=== PATIENT | male | born 1990 | race Caucasian/White ===

== ENCOUNTER 2023-04-06 23:29 | Emergency (ER) | payer MEDICAID, SELFPAY ==
[2023-04-06 23:31] VITALS: BP 119/80; PULSE 88; RESP 20; TEMP 36.5; O2SAT 98
[2023-04-06 23:42] VITALS: O2SAT 98
[2023-04-07] MEDS: Ipratropium/Albuterol Sulfate 3 ML AMPUL.NEB INHALATION (00:23)
[2023-04-07 00:24] VITALS: PULSE 76; RESP 18
--- NOTE | 2023-04-07 00:48 | EX.ED.DYSGE1 ---
HPI History of Present Illness Chief Complaint: Shortness of Breath Informant: patient Narrative Narrative: Patient states for the past 1.5 weeks, since he has been homeless and living at the [facility] locally with his significant other, he has been gradually having more issues with phlegm in his throat. He states this is a chronic issue, he was diagnosed with allergic fungal sinusitis after having received chemotherapy for several different cancers, last time he had chemotherapy was almost 2 years ago, and he states that when he has the phlegm it makes him feel little dyspneic but he does not have any chest symptoms otherwise or fevers/chills or any other new symptoms except for feeling a little shaky and tremulous. Normally he treats this using his maintenance budesonide/formoterol inhaler and prn albuterol inhaler, however for the past 1.5 weeks he has been without both of those and does not have access to them. [facility] Medical History Allergic fungal sinusitis (AFS) Colon cancer Dialysis patient Hypertension Seizures Stomach cancer Home Medications albuterol sulfate 90 mcg/actuation aerosol inhaler (Ventolin HFA) 1 - 2 puff inhalation Q4H PRN PRN Wheezing ##1 04/07/23 [Rx Last Taken Unknown] budesonide-formoterol HFA 160 mcg-4.5 mcg/actuation aerosol inhaler 2 puff inhalation BID #10.2 grams 04/07/23 [Rx Last Taken Unknown] Allergy/AdvReac Type Severity Reaction Status Date / Time iodine Allergy Anaphylaxis Verified 12/01/16 18:24 Surgical History (Updated 04/06/23 @ 23:41 by Naima Riley) S/P colon resection Social History Smoking Status: Current every day smoker tobacco type: cigarettes and cigars ROS ROS ED Constitutional Constitutional ED: Reports malaise; Denies chills or fever(s) Eyes Eyes: Denies change in vision or diplopia ENT ENT ED: Denies rhinorrhea or sore throat Cardiovascular Cardiovascular: Denies chest pain or palpitations Respiratory/Chest Respiratory/Chest: Reports cough, dyspnea and other Details: phlegm Gastrointestinal Gastrointestinal: Denies abdominal pain, diarrhea, nausea or vomiting Genitourinary Genitourinary ED: Denies dysuria or hematuria Musculoskeletal Musculoskeletal: Denies back pain or neck pain Integumentary Denies abscess or rash Neurologic Neurologic: Denies headache(s), paresthesias or weakness Psychiatric Psychiatric: Denies anxiety or suicidal thoughts EXAM Physical Exam Const Vital Signs: 04/06/23 23:31 04/06/23 23:42 04/07/23 00:24 Temperature 97.7 F L Temperature Source Oral Pulse Rate 88 76 Respiratory Rate 20 H 18 Respiratory Effort Normal Respiratory Depth Normal Respiratory Pattern Normal Blood Pressure 119/80 Blood Pressure Mean 93 Pulse Ox 98 Oxygen Delivery Method Room Air Room Air 04/07/23 01:38 Temperature Temperature Source Pulse Rate 104 H Respiratory Rate 16 Respiratory Effort Respiratory Depth Respiratory Pattern Blood Pressure 129/66 H Blood Pressure Mean Pulse Ox 98 Oxygen Delivery Method Positive well nourished and well developed General Appearance ED: well developed and NAD HEENT Reports moist mucous membranes HEENT Narrative: no dysphonia normocephalic and atraumatic Eyes PERRL and EOMs intact bilaterally Neck full ROM, no lymphadenopathy and supple Resp normal respiratory effort and clear to auscultation bilaterally Effort and Inspection: able to speak in complete sentences Cardio regular rate, regular rhythm and no murmurs GI non-tender and non-distended Auscultation: normoactive bowel sounds Palpation: soft Back/Spine no CVA tenderness General Back: other FROM Extremity normal to inspection General Extremety ED: Negative for edema, pulses abnormal or tenderness General Extremity: Negative for edema or pulses abnormal Neuro oriented x3, CN's II-XII intact bilaterally and no sensory deficits noted Sensorium / Orientation: awake and alert Motor Exam: strength 5/5 throughout Skin no rashes or lesions noted and no wounds MDM MDM MDM Narrative Medical decision making narrative: 2 view chest x-ray was obtained and on my interpretation it is negative for any acute pneumonia or pneumothorax or other acute abnormality. Patient was given a duo nebulizer treatment, he states it helped significantly and he feels a lot better and is thankful. He is asking for refills on the his inhalers, I did give him prescriptions for those which should be filled here for him to take with him. He is comfortable with that overall plan of following up as needed, returning if worse. Discharge Plan Triage Chief Complaint: Shortness of Breath ED Provider: Oj Handley Dx/Rx/DC Orders Clinical Impression: Phlegm in throat, Allergic fungal sinusitis (AFS) Instructions: ED Sinusitis (No Antibiotics) Prescriptions: New albuterol sulfate [Ventolin HFA] 90 mcg/actuation HFA aerosol inhaler 1 - 2 puff inhalation Q4H PRN PRN (Reason: Wheezing) Qty: 1 0RF budesonide-formoterol 160-4.5 mcg/actuation HFA aerosol inhaler 2 puff inhalation BID Qty: 10.2 0RF Primary Care Provider: Care Physician,No Primary Referrals: Belinda Dsouza [Non-Staff] - 1 Week if not improving Care Physician,No Primary [Primary Care Provider] - Disposition Disposition: Home, Self Care
--- NOTE | 2023-04-07 01:00 | RAD_ITS ---
EXAM: XR CHEST, 2 VIEWS CLINICAL INDICATION: cough/sob TECHNIQUE: Frontal and lateral views of the chest. COMPARISON: No relevant prior studies available. FINDINGS: LUNGS AND PLEURAL SPACES: The lungs are well-inflated, with mildly hyperlucent appearance of the lung bases, most likely due to thin body habitus. No infiltrate, airway thickening or effusions. No pneumothorax. HEART: Unremarkable. Cardiac silhouette not enlarged. MEDIASTINUM: Central airways and mediastinal contour are unremarkable. BONES/JOINTS: Unremarkable. SOFT TISSUES: Unremarkable. OTHER FINDINGS: 3 views, 2 lateral views are provided. RAD/Chest PA and Lateral IMPRESSION: No infiltrates or effusions. No significant airway thickening. Electronically Signed: Della Penny MD at 2:22 EDT ,
[2023-04-07 01:38] VITALS: BP 129/66; PULSE 104; RESP 16; O2SAT 98
== END 2023-04-07 02:17 | disposition home or self-care (01) ==
PROVIDERS: Emergency Provider Emergency Medicine; Visit Provider Emergency Medicine
DX: J30.89 Other allergic rhinitis (principal); F17.210 Nicotine dependence, cigarettes, uncomplicated; F17.290 Nicotine dependence, other tobacco product, uncomplicated; Z59.01 Sheltered homelessness
CPT/HCPCS: 71046; 94640; 99284

== ENCOUNTER 2023-12-15 12:23 | Emergency (ER) | payer MEDICAID, SELFPAY ==
[2023-12-15 12:24] VITALS: BP 151/113; PULSE 57; RESP 16; TEMP 36.2; O2SAT 98; BMI 23.0
--- NOTE | 2023-12-15 12:46 | EX.ED.UPPERE ---
HPI History of Present Illness Chief Complaint: Upper Extremity Injury Informant: patient Onset/Context/Timing Onset: Days (2-3) Context: Sudden Onset Timing: Continuous Quality of Pain: Aching Location: L wrist Current Severity: Severe Maximum Severity: Severe Worsened by: movement Relieved by: rest Associated Symptoms Associated Symptoms: Negative for Parasthesia or Weakness Narrative Narrative: Patient slipped on the ice 3 days ago, fell to his left upper extremity, did not fall onto outstretched hand, he states his wrist swelled and was painful but nowhere else although the pain radiates up toward the elbow. Swelling went down the last night turned over in bed and he noticed a pop and increased pain and now every time he moves his wrist he states it feels like it is grinding. [id number]. No other pain or injury. [facility] Medical History Allergic fungal sinusitis (AFS) Colon cancer Dialysis patient Hypertension Seizures Stomach cancer Home Medications albuterol sulfate 90 mcg/actuation aerosol inhaler (Ventolin HFA) 1 - 2 puff inhalation Q4H PRN PRN Wheezing ##1 04/07/23 [Rx Last Taken Unknown] budesonide-formoterol HFA 160 mcg-4.5 mcg/actuation aerosol inhaler 2 puff inhalation BID #10.2 grams 04/07/23 [Rx Last Taken Unknown] Allergy/AdvReac Type Severity Reaction Status Date / Time iodine Allergy Anaphylaxis Verified 12/15/23 12:25 Surgical History S/P colon resection Social History Smoking Status: Current every day smoker tobacco type: cigarettes and cigars ROS ROS ED Constitutional Constitutional ED: Denies chills or fever(s) Musculoskeletal Musculoskeletal: Reports extremity pain; Denies neck pain Integumentary Denies Abrasions, rash or wounds Neurologic Neurologic: Denies paresthesias or weakness EXAM Physical Exam Const Vital Signs: 12/15/23 12:24 Temperature 97.1 F L Temperature Source Temporal Pulse Rate 57 L Respiratory Rate 16 Blood Pressure 151/113 H Blood Pressure Mean 125 Pulse Ox 98 Oxygen Delivery Method Room Air Positive well nourished and well developed General Appearance ED: well developed and NAD Neck full ROM and supple Back/Spine normal ROM and normal to inspection Extremity Extremity Narrative: Limited range of motion left wrist. He has some mild tenderness throughout the left distal half of the forearm, the left wrist is mildly swollen, tender mostly at distal radius including the snuffbox. No hand tenderness. No bleeding or lacerations. Full range of motion of the elbow without difficulty although he has pain in the wrist with limited supination pronation. Neuro oriented x3, no focal motor deficits and no sensory deficits noted Sensorium / Orientation: alert Psych mental status grossly normal and thought process normal Skin no wounds Rashes: no rashes MDM MDM MDM Narrative Medical decision making narrative: Three-view x-ray series of the left wrist extended up to see the distal half of the radius/ulna negative on my interpretation for any fracture. Radiology in agreement. Likely patient just has some joint fluid/swelling that he is feeling from a probable sprain but we will place him in a Velcro splint and have him follow-up with Ortho if the pain persists after 1 week. Discharge Plan Triage Chief Complaint: Upper Extremity Injury ED Provider: Oj Handley Dx/Rx/DC Orders Clinical Impression: Left wrist sprain Instructions: ED Wrist Sprain Prescriptions: No Action albuterol sulfate [Ventolin HFA] 90 mcg/actuation HFA aerosol inhaler 1 - 2 puff inhalation Q4H PRN PRN (Reason: Wheezing) Qty: 1 0RF budesonide-formoterol 160-4.5 mcg/actuation HFA aerosol inhaler 2 puff inhalation BID Qty: 10.2 0RF Primary Care Provider: [facility] Belinda Willard Referrals: Heath Kim DO [Med Staff - Active Staff] - 1 Week if not improving Belinda Dsouza [Non-Staff] - Disposition Disposition: Home, Self Care Discharge Date/Time: 12/15/23 14:25
--- NOTE | 2023-12-15 12:53 | RAD_ITS ---
STUDY: X-RAY - LEFT WRIST REASON FOR EXAM: Male, 33 years old. Pain/injury. TECHNIQUE: 3 views of the left wrist were obtained. COMPARISON: None. FINDINGS: Normal visualized distal radius and ulna. Normal radiocarpal articulation. Normal distal radioulnar articulation. Normal carpal bones. Normal carpal articulations. Normal carpometacarpal articulation of the thumb. Normal second through fifth carpometacarpal articulations. Normal visualized metacarpal bones. The soft tissue structures are unremarkable. There is no demonstrated acute fracture. RAD/Wrist min 3 Views IMPRESSION: Normal x-ray examination of the left wrist. Electronically Signed: Chito Hobbs MD at 13:12 EST ,
--- OUTSIDE RECORDS SUMMARY | 2023-12-15 13:09 | XMS RPT_ITS | CCD ---
Author Name Unknown Address [address] [place] [address] Organization [facility] Care Team Providers Care Safety Aide Name Role Phone Unavailable Primary Care Provider Unavailabl e SELF, SELF Referring Unavailable SAMUEL RIZO Attending Unavailable SANNA JUAREZ Attending Unavailable Medications Current Medications Medication Drug Class(es) Dates Sig (Normalized) Sig (Original) amoxicillin 500 mg oral capsule (1 source) Penicillin-class Antibacterial Start: 08-09-2023 End: 08-19-2023 take 1 capsule by mouth every eight hours Amoxicillin 500 MG capsule Take 1 capsule by mouth every 8 hours for 10 days. 30 capsule 0 08/09/2023 08/19/2023 Active cephalexin 500 mg oral capsule (1 source) Cephalosporin Antibacterial Start: 04-03-2022 End: 04-06-2022 take 1 capsule by mouth three times daily cephALEXin (KEFLEX) 500 mg capsule Take 1 capsule by mouth three times daily for 3 days. Start after procedure. 9 capsule 0 04/03/2022 04/06/2022 Active Completed/Discontinued Medications Medication Drug Class(es) Dates Sig (Normalized) Sig (Original) acetaminophen 325 mg / HYDROcodone bitartrate 5 mg oral tablet (2 sources) Opioid Agonist Start: 04-03-2022 HYDROcodone-acetam inophen (NORCO) 5-325 mg per tablet Indications: Encounter for vasectomy assessment Take 1-2 tablets by mouth every 8 hours as needed for pain for up to 20 doses. Take as needed for pain. 20 tablet 0 04/03/2022 Active Problems Problem Classification Problem Date Documented Da te Episodic/Chronic Chronic kidney disease (1 source) Chronic kidney disease stage 3A ; Translations: [Stage 3a chronic kidney disease] 08-26-2023 Chronic Chronic kidney disease (2 sources) Chronic kidney disease; Translations: [Chronic kidney disease, stage 3a] Onset: 08-26-2023 Contraceptive and procreative management (1 source) Patient encounter status; Translations: [Encounter for other general counseling and advice on contraception] Episodic Otitis media and related conditions (2 sources) Perforation of right tympanic membrane; Translations: [Unspecified perforation of tympanic membrane, right ear] Onset: 08-09-2023 08-09-2023 Episodic Results Test Name Value Interpretation Reference Range Facil ity Vital Signs Date Time Vital Sign Value Performing Clinician Facility 08-26-2023 14:27-0400 Body mass index (BMI) [Ratio] 23.75 kg/m2 Samuel Rizo MD Work Phone: [facility] 08-26-2023 14:27-0400 Body weight 83.92 kg Samuel Rizo MD Work Phone: [facility] 08-26-2023 14:27-0400 Diastolic blood pressure 80 mm[Hg] Samuel Rizo MD Work Phone: [facility] 08-26-2023 14:27-0400 Heart rate 75 /min Samuel Rizo MD Work Phone: [facility] 08-26-2023 14:27-0400 SaO2% (BldA) [Mass fraction] 98 % Samuel Rizo MD Work Phone: [facility] 08-26-2023 14:27-0400 Systolic blood pressure 130 mm[Hg] Samuel Rizo MD Work Phone: [facility] 08-09-2023 10:45-0400 Diastolic blood pressure 75 mm[Hg] Sanna Juarez MD Work Phone: [facility] 08-09-2023 10:45-0400 Heart rate 75 /min Sanna Juarez MD Work Phone: [facility] 08-09-2023 10:45-0400 Systolic blood pressure 124 mm[Hg] Sanna Juarez MD Work Phone: [facility] 08-09-2023 10:13-0400 Body height 188 cm Sanna Juarez MD Work Phone: [facility] 08-09-2023 10:12-0400 Body temperature 98.49 [degF] Sanna Juarez MD Work Phone: [facility] 08-09-2023 10:12-0400 Respiratory rate 16 /min Sanna Juarez MD Work Phone: [facility] 08-09-2023 10:12-0400 SaO2% (BldA) [Mass fraction] 100 % Sanna Juarez MD Work Phone: [facility] 04-03-2022 14:07-0400 Body height 193 cm Ede Granda MD Work Phone: [facility] 04-03-2022 14:07-0400 Heart rate 85 /min Ede Granda MD Work Phone: [facility] 04-03-2022 14:07-0400 SaO2% (BldA) [Mass fraction] 99 % Ede Granda MD Work Phone: [facility] Encounters Encounter Date Encounter Type Care Provider Facility Start: 08-26-2023 ambulatory SELF SELF [facility] Start: 08-26-2023 End: 08-26-2023 Office outpatient new 45 minutes Samuel Rizo MD Work Phone: [facility] Plan of Treatment Date Care Activity Detail Author Start: 09-16-2023 End: 09-16-2023 Patient encounter procedure 09/16/2023 3:00 PM EDT Office Visit [facility] [address] [place] [address] Samuel Rizo MD [address] [place] [address] [facility] Start: 08-26-2023 End: 08-26-2024 ONEYDA MULTIPLEX SCRN WITH REFLEX ONEYDA MULTIPLEX SCRN WITH REFLEX Lab Routine Stage 3a chronic kidney disease Expected: 08/26/2023, Expires: 08/26/2024 [facility] Payers Date Payer Category Payer Medicaid [id number] 2021 Medicaid [employer] [employer] [id number] 2021-Present [phone] [address] [place] [address] Medicaid [id number] 2021 Medicaid [id number] 1991 Unknown [id number] 1990 Unknown [id number] Social History Date Type Detail Facility Start: 04-03-2022 End: 08-09-2023 Tobacco smoking status MEIS Smokes tobacco daily [facility] Start: 04-03-2022 Tobacco use and exposure Forme r smokeless tobacco user [facility] Start: 04-03-2022 Alcohol intake Lifetime non-d ren (finding) [facility] Start: 04-03-2022 History SDOH Alcohol Frequency 1 [facility] Start: 1990 Sex Assigned At Not on file [facility] History of tobacco use Cigarette Smoker [facility] Start: 08-09-2023 End: 08-26-2023 Cigarettes smoked current (pack per day) - Reported 1 [facility] Start: 08-09-2023 End: 08-26-2023 Alcohol intake Ex-drinker (finding) [facility] Start: 08-09-2023 End: 08-26-2023 Tobacco use panel [facility] Clinical Notes 04-03-2022 to 08-26-2023 Samuel Rizo MD - 08/26/2023 2:30 PM EDTSamuel Rizo MD - 08/26/2023 2:30 PM EDT Note Date & Type Note Facility 08-26-2023 History and physical note I saw Jose Juan Carballo in renal clinics at [facility] in [place] on 08/26/2023. Assessment/Plan: 32 y/o male with history of kidney stone, lupus, and abdominal masses is here for CKD care. 1) CKD III Will get renal US Will get UA Will get renal panel. 2) Lupus Will get ESR and CRP 3) Kidney stone Will get vitamin D Will get PTH. Reason for Consultation: CKD Consulting Physician: Self History of Present Illness: Jose Juan Carballo is a 32 y.o. male who we have been consulted to see on 08/26/2023. 32 y/o male with history of kidney stone, lupus, and abdominal masses is here for CKD care. He has been in remission for a year. He does not know what meds he is on. No past medical history on file. (Not in a hospital admission) Scheduled Meds: IV Infusions: Not on File History reviewed. No pertinent family history. Social History Tobacco Use Smoking status: Every Day Packs/day: 1 Types: Cigarettes Substance Use Topics Alcohol use: Not Currently Drug use: Yes Types: Marijuana Review of Systems: General ROS: Otherwise remainder of 14-point ROS is negative HEENT: No complaints of headache change in vision, nose or ear No sinus issues Cadiovascular: No chest pain, no diaphoresis, no palpitation Gastrointestinal: No complaints of dysphagia, nausea, vomiting. No change in stool pattern, consistency, or color. No epigastric pain Genitourinary: No complaints of dysuria, nocturia, polyuria, or hematuria. Pulmonary: No cough, no SOB, no wheezing Musculoskeletal: No arthralgias, muscle aches, or pains. Neurological: No weakness, numbness, or incoordination Integumentary: No rashes, itching. No hair or nail changes Psychiatric: No anxiety, depression, or sleep disturbance Hematologic / lymphatic: No easy bruising or bleeding. No enlarged lymph nodes. Allergic / immunologic: No hay fever/seasonal nasal congestion. No food/medication reactions Physical Examination: Vital Signs @VSRANGES@ No intake/output data recorded. @IOTHISSHIFT@ BP 130/80 Pulse 75 Wt 83.9 kg (185 lb) SpO2 98% BMI 23.75 kg/m Smoking Status Every Day General: Alert, oriented and cooperative. NAD Skin: Normal in appearance, texture, and temperature HEENT: Scalp normal. Pupils equally round,reactive to light and accommodation, sclera and conjunctiva normal. Nasal mucosa normal. Oral pharynx is normal without erythema or exudate. Tongue and gums are normal. Neck: Easily moveable without resistance, no abnormal adenopathy in the cervical or supraclavicular areas. Trachea is midline and thyroid gland is normal without masses. Carotid artery upstroke is normal bilaterally without bruits. CV: RRR, nl S1 and S2, no m/g/r Lungs: Lungs are clear to auscultation and percussion bilaterally No wheezing, no crackle. Normal effort. Abdomen: The abdomen is symmetrical without distention; bowel sounds are normal in quality and intensity in all areas. No masses or splenomegaly are noted; noo hepatomegaly Extremities: No cyanosis, clubbing, or edema are noted. Peripheral pulses in the femoral, popliteal, anterior tibial, dorsalis pedis,brachial, and radial areas are normal. Nodes: No palpable nodes in the cervical, supraclavicular, axillary or inguinal areas. Neurological: Cranial nerves II-XII are normal. Motor and sensory examination of the upper and lower extremities is normal. Gait and cerebellar function are also normal. Reflexes are normal and symmetrical bilaterally in both extremities. Relevant Data: No results found for: SODIUM , POTASSIUM , CHLORIDE , CO2 , BUN , CREATSERUM , GLUCOSE No results found for: CALCIUM , PHOSPHORUS , PHOSPHORUSTI No results found for: WBC , WBCCOUNT , WBCFETAL , HGB , HCT , PLATELET , MCV No results found for: SPGRVTYUR , SPECGRAVUR , GLUCOSEURINE , BILIRUBINURI , KETONESURINE , BLOODURINE , PHURINE , NITRITEURINE , NITRITESURIN , LEUKOCESTUR , WBCURINE , RBCURINE , BACTERIAURIN No results found for: CREATSERUM T [facility] 08-26-2023 History and physical note I saw Jose Juan Carballo in renal clinics at [facility] in [place] on 08/26/2023. Assessment/Plan: 32 y/o male with history of kidney stone, lupus, and abdominal masses is here for CKD care. 1) CKD III Will get renal US Will get UA Will get renal panel. 2) Lupus Will get ESR and CRP 3) Kidney stone Will get vitamin D Will get PTH. Reason for Consultation: CKD Consulting Physician: Self History of Present Illness: Jose Juan Carballo is a 32 y.o. male who we have been consulted to see on 08/26/2023. 32 y/o male with history of kidney stone, lupus, and abdominal masses is here for CKD care. He has been in remission for a year. He does not know what meds he is on. No past medical history on file. (Not in a hospital admission) Scheduled Meds: IV Infusions: Not on File History reviewed. No pertinent family history. Social History Tobacco Use Smoking status: Every Day Packs/day: 1 Types: Cigarettes Substance Use Topics Alcohol use: Not Currently Drug use: Yes Types: Marijuana Review of Systems: General ROS: Otherwise remainder of 14-point ROS is negative HEENT: No complaints of headache change in vision, nose or ear No sinus issues Cadiovascular: No chest pain, no diaphoresis, no palpitation Gastrointestinal: No complaints of dysphagia, nausea, vomiting. No change in stool pattern, consistency, or color. No epigastric pain Genitourinary: No complaints of dysuria, nocturia, polyuria, or hematuria. Pulmonary: No cough, no SOB, no wheezing Musculoskeletal: No arthralgias, muscle aches, or pains. Neurological: No weakness, numbness, or incoordination Integumentary: No rashes, itching. No hair or nail changes Psychiatric: No anxiety, depression, or sleep disturbance Hematologic / lymphatic: No easy bruising or bleeding. No enlarged lymph nodes. Allergic / immunologic: No hay fever/seasonal nasal congestion. No food/medication reactions Physical Examination: Vital Signs @VSRANGES@ No intake/output data recorded. @IOTHISSHIFT@ BP 130/80 Pulse 75 Wt 83.9 kg (185 lb) SpO2 98% BMI 23.75 kg/m Smoking Status Every Day General: Alert, oriented and cooperative. NAD Skin: Normal in appearance, texture, and temperature HEENT: Scalp normal. Pupils equally round,reactive to light and accommodation, sclera and conjunctiva normal. Nasal mucosa normal. Oral pharynx is normal without erythema or exudate. Tongue and gums are normal. Neck: Easily moveable without resistance, no abnormal adenopathy in the cervical or supraclavicular areas. Trachea is midline and thyroid gland is normal without masses. Carotid artery upstroke is normal bilaterally without bruits. CV: RRR, nl S1 and S2, no m/g/r Lungs: Lungs are clear to auscultation and percussion bilaterally No wheezing, no crackle. Normal effort. Abdomen: The abdomen is symmetrical without distention; bowel sounds are normal in quality and intensity in all areas. No masses or splenomegaly are noted; noo hepatomegaly Extremities: No cyanosis, clubbing, or edema are noted. Peripheral pulses in the femoral, popliteal, anterior tibial, dorsalis pedis,brachial, and radial areas are normal. Nodes: No palpable nodes in the cervical, supraclavicular, axillary or inguinal areas. Neurological: Cranial nerves II-XII are normal. Motor and sensory examination of the upper and lower extremities is normal. Gait and cerebellar function are also normal. Reflexes are normal and symmetrical bilaterally in both extremities. Relevant Data: No results found for: SODIUM , POTASSIUM , CHLORIDE , CO2 , BUN , CREATSERUM , GLUCOSE No results found for: CALCIUM , PHOSPHORUS , PHOSPHORUSTI No results found for: WBC , WBCCOUNT , WBCFETAL , HGB , HCT , PLATELET , MCV No results found for: SPGRVTYUR , SPECGRAVUR , GLUCOSEURINE , BILIRUBINURI , KETONESURINE , BLOODURINE , PHURINE , NITRITEURINE , NITRITESURIN , LEUKOCESTUR , WBCURINE , RBCURINE , BACTERIAURIN No results found for: CREATSERUM documented in this encounter [facility] documented in this encounter [facility]09-16-2023 Emergency department Note* Anum Huber RN - 08/09/2023 10:48 AM EDT At 1057 08-09-23, called and spoke to patient who left behind a cane and purse, said patient returned and collected said items. [facility]09-16-2023 Emergency department Note* Anum Huber RN - 08/09/2023 10:48 AM EDT At 1057 08-09-23, called and spoke to patient who left behind a cane and purse, said patient returned and collected said items. * Jeny Baires RN - 08/09/2023 10:46 AM EDT Ambulatory out of ed with dc papers in hand. Dc instructions along with e script provided and reviewed, verbalizes understanding of dc instructions. Followup care also provided. Denies any questions concerns regarding dc instructions * Sanna Juarez MD - 08/09/2023 10:35 AM EDT EMERGENCY DEPARTMENT REPORT [facility] DATE: 08/09/23 PCP: No primary care provider on file. CHIEF COMPLAINT: Chief Complaint Patient presents with Hearing Problem Pt lost hearing in rt ear yesterday. Pt states it feels like it is plugged. Pain yesterday but noneat this time. He states he feels/hears a swishing sound inside. HPI: Jose Juan Carballo is a 32 y.o. male who presents with Diminished hearing in his right ear for one day.He says yesterday when he was taking shower he noted after the shower that he could not hear out ofhis right ear very well. This morning he noticed a little pink tinged fluid on his pillow that seemed to have come from his ear. He has some mild pain in the ear. He denies fever. No nausea or vomitin g. No other specific complaints. He says the ear feels like it is plugged REVIEW OF SYSTEMS: As documented in HPI. A thorough 12 point review of systems was evaluated including Constitutional and general appearance, Head, Face, Ears, Eyes, Nose, Throat, Cardiovascular, Pulmonary, GI, , Skin, and Psychiatric andwas found to be negative without symptoms or signs consistent with acute pathology with the exception of that specifically documented in the HPI section of this documentation. Remaining systems reviewed and negative other than the history of present illness. PAST MEDICAL HISTORY: No past medical history on file. SURGICAL HISTORY: No past surgical history on file. CURRENT MEDICATIONS: Patient's Medications New Prescriptions AMOXICILLIN 500 MG CAPSULE Take 1 capsule by mouth every 8 hours for 10 days. Previous Medications No medications on file Modified Medications No medications on file Discontinued Medications No medications on file ALLERGIES: Not on File FAMILY HISTORY: History reviewed. No pertinent family history. SOCIAL HISTORY: Social History Socioeconomic History Marital status: Spouse name: Not on file Number of children: Not on file Years of education: Not on file Highest education level: Not on file Occupational History Not on file Tobacco Use Smoking status: Every Day Packs/day: 1 Types: Cigarettes Smokeless tobacco: Not on file Substance and Sexual Activity Alcohol use: Not Currently Drug use: Yes Types: Marijuana Sexual activity: Not on file Other Topics Concern Not on file Social History Narrative Not on file Social Determinants of Health Financial Resource Strain: Not on file Food Insecurity: Not on file Transportation Needs: Not on file Physical Activity: Not on file Stress: Not on file Social Connections: Not on file Intimate Partner Violence: Not on file Housing Stability: Not on file PHYSICAL EXAM: Constitutional: Oriented and well-developed, well-nourished, and in no distress. Non-toxic appearance. HEENT: Normocephalic and atraumatic. Right tympanic membrane has some fluid present behind the drumand has a small hole the 8 o'clock position. Some fluid in the ear canal. There is not a great dealof erythema. See any masses or significant swelling. Eyes: Extra ocular muscles intact.. Pupils are equal and round. No discharge. No scleral icterus. Neck: Neck is supple and nontender. No JVD, thyromegaly or cervical adenopathy. Cardiovascular: Regular rate and rhythm, normal heart sounds and intact distal pulses. No murmur heard. Pulmonary/Chest: Effort normal. Lungs are clear without wheezes, rales or rhonchi. Abdomen: Soft and non-distended. Musculoskeletal: Normal range of motion of major joints. No edema, tenderness or deformity. Neurological: Alert and oriented. No focal weakness, tremor, or facial asymmetry. Normal speech. Normal muscle tone. Skin: Skin is warm and dry. No rash noted. No cyanosis or erythema. Psychiatric: Mood, memory, and judgment normal. Exhibits ordered thought content. Affect appears normal. VITAL SIGNS DURING ED VISIT: Patient Vitals for the past 24 hrs: BP Temp Temp src Pulse Resp SpO2 Height 08/09/23 1013 -- -- -- -- -- -- 1.88 m (6' 2 ) 08/09/23 1012 122/75 98.5 F (36.9 C) Oral 72 16 100 % -- ED COURSE & MEDICAL DECISION MAKIN-year-old with a perforation of his right eardrum. ORDERS/RESULTS: Orders Placed This Encounter AMB REFERRAL TO FAMILY PRACTICE Amoxicillin 500 MG capsule No results found for this or any previous visit. IMAGING: No orders to display Moderate Sedation Procedure: No CLINICAL IMPRESSION: 1. Perforation of right tympanic membrane Acute DISPOSITION: Discharge No follow-ups on file. New Prescriptions AMOXICILLIN 500 MG CAPSULE Take 1 capsule by mouth every 8 hours for 10 days. Discontinued Medications No medications on file An after visit summary was printed and given to the patient with the above information. Portions of this chart were created using [employer] electronic dictation. Please excuse any typographical or grammatical errors contained herein. Sanna Juarez MD 08/09/23 1039 documented in this [facility]09-16-2023 Emergency department Note* Jeny Baires RN - 08/09/2023 10:46 AM EDT Ambulatory out of ed with dc papers in hand. Dc instructions along with e script provided and reviewed, verbalizes understanding of dc instructions. Followup care also provided. Denies any questions concerns regarding dc instructions [facility]09-16-2023 Hospital Discharge instructions* Discharge Instructions* Sanna Juarez MD - 08/09/2023 10:38 AM EDT Take amoxicillin as prescribed. Have the ear rechecked I your primary doctor or the referral physician in 2 weeks. Nothing in the ear. documented in this [facility]09-16-2023 Physician Emergency department Note* Sanna Juarez MD - 08/09/2023 10:35 AM EDT EMERGENCY DEPARTMENT REPORT [facility] DATE: 08/09/23 PCP: No primary care provider on file. CHIEF COMPLAINT: Chief Complaint Patient presents with Hearing Problem Pt lost hearing in rt ear yesterday. Pt states it feels like it is plugged. Pain yesterday but noneat this time. He states he feels/hears a swishing sound inside. HPI: Jose Juan Carballo is a 32 y.o. male who presents with Diminished hearing in his right ear for one day.He says yesterday when he was taking shower he noted after the shower that he could not hear out ofhis right ear very well. This morning he noticed a little pink tinged fluid on his pillow that seemed to have come from his ear. He has some mild pain in the ear. He denies fever. No nausea or vomitin g. No other specific complaints. He says the ear feels like it is plugged REVIEW OF SYSTEMS: As documented in HPI. A thorough 12 point review of systems was evaluated including Constitutional and general appearance, Head, Face, Ears, Eyes, Nose, Throat, Cardiovascular, Pulmonary, GI, , Skin, and Psychiatric andwas found to be negative without symptoms or signs consistent with acute pathology with the exception of that specifically documented in the HPI section of this documentation. Remaining systems reviewed and negative other than the history of present illness. PAST MEDICAL HISTORY: No past medical history on file. SURGICAL HISTORY: No past surgical history on file. CURRENT MEDICATIONS: Patient's Medications New Prescriptions AMOXICILLIN 500 MG CAPSULE Take 1 capsule by mouth every 8 hours for 10 days. Previous Medications No medications on file Modified Medications No medications on file Discontinued Medications No medications on file ALLERGIES: Not on File FAMILY HISTORY: History reviewed. No pertinent family history. SOCIAL HISTORY: Social History Socioeconomic History Marital status: Spouse name: Not on file Number of children: Not on file Years of education: Not on file Highest education level: Not on file Occupational History Not on file Tobacco Use Smoking status: Every Day Packs/day: 1 Types: Cigarettes Smokeless tobacco: Not on file Substance and Sexual Activity Alcohol use: Not Currently Drug use: Yes Types: Marijuana Sexual activity: Not on file Other Topics Concern Not on file Social History Narrative Not on file Social Determinants of Health Financial Resource Strain: Not on file Food Insecurity: Not on file Transportation Needs: Not on file Physical Activity: Not on file Stress: Not on file Social Connections: Not on file Intimate Partner Violence: Not on file Housing Stability: Not on file PHYSICAL EXAM: Constitutional: Oriented and well-developed, well-nourished, and in no distress. Non-toxic appearance. HEENT: Normocephalic and atraumatic. Right tympanic membrane has some fluid present behind the drumand has a small hole the 8 o'clock position. Some fluid in the ear canal. There is not a great dealof erythema. See any masses or significant swelling. Eyes: Extra ocular muscles intact.. Pupils are equal and round. No discharge. No scleral icterus. Neck: Neck is supple and nontender. No JVD, thyromegaly or cervical adenopathy. Cardiovascular: Regular rate and rhythm, normal heart sounds and intact distal pulses. No murmur heard. Pulmonary/Chest: Effort normal. Lungs are clear without wheezes, rales or rhonchi. Abdomen: Soft and non-distended. Musculoskeletal: Normal range of motion of major joints. No edema, tenderness or deformity. Neurological: Alert and oriented. No focal weakness, tremor, or facial asymmetry. Normal speech. Normal muscle tone. Skin: Skin is warm and dry. No rash noted. No cyanosis or erythema. Psychiatric: Mood, memory, and judgment normal. Exhibits ordered thought content. Affect appears normal. VITAL SIGNS DURING ED VISIT: Patient Vitals for the past 24 hrs: BP Temp Temp src Pulse Resp SpO2 Height 08/09/23 1013 -- -- -- -- -- -- 1.88 m (6' 2 ) 08/09/23 1012 122/75 98.5 F (36.9 C) Oral 72 16 100 % -- ED COURSE & MEDICAL DECISION MAKIN-year-old with a perforation of his right eardrum. ORDERS/RESULTS: Orders Placed This Encounter AMB REFERRAL TO FAMILY PRACTICE Amoxicillin 500 MG capsule No results found for this or any previous visit. IMAGING: No orders to display Moderate Sedation Procedure: No CLINICAL IMPRESSION: 1. Perforation of right tympanic membrane Acute DISPOSITION: Discharge No follow-ups on file. New Prescriptions AMOXICILLIN 500 MG CAPSULE Take 1 capsule by mouth every 8 hours for 10 days. Discontinued Medications No medications on file An after visit summary was printed and given to the patient with the above information. Portions of this chart were created using [employer] electronic dictation. Please excuse any typographical or grammatical errors contained herein. Sanna Juarez MD 08/09/23 1039 [facility]08-17-2022 Miscellaneous Notes* Telephone Encounter - Vandana Mark COORD - 07/10/2022 4:09 PM EDT Patient has been contacted via: Phone To reschedule appointment with Provider: gigi Date of appointment: 07/10/22 Reason: No Show Attempt: First Attempt Patient call back number given: [phone] Any additional info: lm for pt to call back and reschedule documented in this encounter[facility]22 NoteHNO ID: [id number] Author: Ede Granda MD Service: ? Author Type: Physician Type: Progress Notes Filed: 04/03/2022 2:31 PM Note Text: Jose Juan Carballo Referred by: SELF 04/03/2022 CC: Desires permanent sterilization HPI: 31 year old male states he desire permanent surgical sterilization. Reports [address] and expressly states he does not desire to father children in the future. Genitourinary history: Hx undescended testis: none Hx stone disease: 10 years ago, passed on own Hx UTI/prostatitis/epididimitis/STI: none ROS: Sexual frequency/libido: intact, no ED Urinary sx: none Hematuria: none History reviewed. No pertinent past medical history. PAST SURGICAL HISTORY Procedure Laterality Date - BACK SURGERY HX N/A - KNEE SURGERY HX Right No current outpatient medications on file. No current facility-administered medications for this visit. Allergies: Patient has no known allergies. Family Hx: Denies family history of genitourinary malignancy Social History Tobacco Use - Smoking status: Current Every Day Smoker - Smokeless tobacco: Former User Substance Use Topics - Alcohol use: Never - Drug use: Never Occupation/exposures: unemployed Review of Systems: Constitutional: No weakness, fever/chills, unexplained weight change Psychiatric: Stable mood Skin: No rashes or lesions HEENT: No blurred vision or double vision. No severe or worsening headaches.Neck: No masses or pain Chest: No shortness of breath or cough. No history of recurrent pneumonia, bronchitis, or sinustitis. CVS: No chest pains or palpatations. No history of cardiovascular disease. GI: No nausea, vomiting or abdominal pain Neurologic: No weakness or sensory changes : see above Musculoskeletal: Stable All other systems reviewed and noncontributory PE: vitals: see above General: Well masculinized, well nourished male Psych: euthymic, NAD Neuro: AANDOx3. Inguinal: No lesions, adenopathy, or hernias Phallus: normal, circumcised, no lesions Meatus: orthotopic, patent, no discharge Scrotum: no lesions, normal rugae Testes: Descended, nontender, and no masses bilaterally Epididymides: Normal Vas deferens: palpable bilaterally Assessment: 31 year old male desires vasectomy. The patient attests that he understood the No-Scalpel Vasectomy pamphlet. He was instructed to stop all NSAIDs, aspirin and other blood thinners 5 days prior to the vasectomy. He was instructed to shave entire front of scrotum to the base of the penis the morning of the vasectomy. Postprocedure care, expectations, and limitations were discussed. He voiced understanding of these instructions and stated his questions were answered. Plan: 1)Proceed to vasectomy I personally counseled this patient about the following and he voiced understanding: a) Vasectomy is a permanent and irreversible form of sterilization b) 1:1,000 rate of recanalization which can results in the return of sperm into the ejaculate after vasectomy c) Patient must use alternative form of control until he is notified that his postprocedure semen analysis contained no sperm. Ede Granda MD Medical Decision Making: Problems: Moderate: New problem with uncertain prognosis Data: Unique test(s) ordered: 1 Risk: Moderate: Drug management Medical Decision Making Level: 4 - [facility] 04-03-2022 Instructions* Patient Instructions* Ede Granda MD - 04/03/2022 2:27 PM EDT Today we discussed your desire for sterilization. Get your prescriptions filled within 2 weeks. Shave your scrotum. Buy an athletic supporter as you'll want to wear it for around 2 weeks. Naima will get you scheduled and I'll see you soon! documented in this encounterAv[facility] System05-11-2022 History of Present illness Narrative* Ede Granda MD - 04/03/2022 2:21 PM EDT Jose Juan Carballo Referred by: SELF 04/03/2022 CC: Desires permanent sterilization HPI: 31 year old male states he desire permanent surgical sterilization. Reports fathering [address] children and expressly states he does not desire to father children in the future. Genitourinary history: Hx undescended testis: none Hx stone disease: 10 years ago, passed on own Hx UTI/prostatitis/epididimitis/STI: none ROS: Sexual frequency/libido: intact, no ED Urinary sx: none Hematuria: none History reviewed. No pertinent past medical history. PAST SURGICAL HISTORY Procedure Laterality Date BACK SURGERY HX N/A KNEE SURGERY HX Right No current outpatient medications on file. No current facility-administered medications for this visit. Allergies: Patient has no known allergies. Family Hx: Denies family history of genitourinary malignancy Social History Tobacco Use Smoking status: Current Every Day Smoker Smokeless tobacco: Former User Substance Use Topics Alcohol use: Never Drug use: Never Occupation/exposures: unemployed Review of Systems: Constitutional: No weakness, fever/chills, unexplained weight change Psychiatric: Stable mood Skin: No rashes or lesions HEENT: No blurred vision or double vision. No severe or worsening headaches.Neck: No masses or pain Chest: No shortness of breath or cough. No history of recurrent pneumonia, bronchitis, or sinustitis. CVS: No chest pains or palpatations. No history of cardiovascular disease. GI: No nausea, vomiting or abdominal pain Neurologic: No weakness or sensory changes : see above Musculoskeletal: Stable All other systems reviewed and noncontributory PE: vitals: see above General: Well masculinized, well nourished male Psych: euthymic, NAD Neuro: A&Ox3. Inguinal: No lesions, adenopathy, or hernias Phallus: normal, circumcised, no lesions Meatus: orthotopic, patent, no discharge Scrotum: no lesions, normal rugae Testes: Descended, nontender, and no masses bilaterally Epididymides: Normal Vas deferens: palpable bilaterally Assessment: 31 year old male desires vasectomy. The patient attests that he understood the No-Scalpel Vasectomy pamphlet. He was instructed to stopall NSAIDs, aspirin and other blood thinners 5 days prior to the vasectomy. He was instructed to shave entire front of scrotum to the base of the penis the morning of the vasectomy. Postprocedure care, expectations, and limitations were discussed. He voiced understanding of these instructions and st ated his questions were answered. Plan: 1)Proceed to vasectomy I personally counseled this patient about the following and he voiced understanding: a) Vasectomy is a permanent and irreversible form of sterilization b) 1:1,000 rate of recanalization which can results in the return of sperm into the ejaculate aftervasectomy c) Patient must use alternative form of control until he is notified that his postprocedure semen analysis contained no sperm. Ede Granda MD Medical Decision Making: Problems: Moderate: New problem with uncertain prognosis Data: Unique test(s) ordered: 1 Risk: Moderate: Drug management Medical Decision Making Level: 4 - Moderate documented in [facility] [place] [facility]* Diagnosis Encounter for vasectomy assessment- Primary [facility] [place] [facility]* Diagnosis Perforation of right tympanic membrane- Primary Perforation of tympanic membrane, unspecified [facility] Consultation (Urgent) - New Request Specialty Diagnoses / Procedures Referred By Chase pretty Referred To Contact Family Medicine Diagnoses Perforation of right tympanic membrane Sanna Juarez MD [address] [place] [address] Referral ID Status Reason Start Date Expiration Date V isits Requested Visits Authorized [id number] New Request 08/09/2023 09/02/2024 1 [facility] for [facility] Specialty Diagnoses / Procedures Referred By Chase pretty Referred To Contact Diagnoses Encounter for vasectomy assessment Ede Granda MD [address] [place] [address] Referral ID Status Reason Start Date Expiration Date Visits Re quested Visits Authorized [id number] Closed 1 1 Specialty Diagnoses / Procedures Referred By Chase pretty Referred To Contact Diagnoses Stage 3a chronic kidney disease Procedures US RENAL RETROPERITONEAL Samuel Rizo MD [address] [place] [address] Referral ID Status Reason Start Date Expiration Date V isits Requested Visits Authorized [id number] New Request 08/26/2023 09/19/2024 1 1 Summary Purpose Family History No Family History Records FoundNo Family History Records Found Advance Directives No Advanced Directives Records FoundNo Advanced Directives Records Found Additional Source Comments Source Comments (unrecognize d section and content) In the event this informatio n is protected by the Federal Confidentiality of Alcohol and Drug Abuse Patient Records regulations: The Federal rules restrict any use of the information to criminally investigate or prosecute any alcohol or drug abuse patient.[facility] SystemIn the event this information is protected by the Federal Confidentiality of Alcohol and Drug Abuse Patient Records regulations: The Federal rules restrict any use of the information to criminally investigate or prosecute any alcohol or drug abuse patient.[facility] Reason for Visit (unrecogniz ed section and content) Reason Comments No Show Reason Comments Hearing Problem Pt lost hearing in r t ear yesterday. Pt states it feels like it is plugged. Pain yesterday but none at this time. He states he feels/hears a swishing sound inside. Reason Comments New Patient Pt has lupus wants t o be established (unrecognized sect ion and content) No Status Records FoundNo Status Records Found INFORMATION SOURCE (unrecogn ized section and content) DATE CREATED AUTHOR AUTHOR'S ORGANIZ ATION 08/27/2023 Arlene teran FOR RECORDS PERTAINING TO PATIENTS WHO ARE OR HAVE BEEN ENROLLED IN A CHEMICAL DEPENDENCY/SUBSTANCEABUSE PROGRAM, SOME INFORMATION MAY BE OMITTED. This clinical summary was aggregated from multiple sources. Caution should be exercised in using it in the provision of clinical care. This summary normalizes information from multiple sources, and as a consequence, information in this document may materially change the coding, format and clinical context of patient data. In addition, data may be omitted in some cases. CLINICAL DECISIONS SHOULD BE BASED ON THE PRIMARY CLINICAL RECORDS. [facility] [employer] provides no warranty or guarantee of the accuracy or completeness of information in this document.
[2023-12-15 14:24] VITALS: PULSE 78; RESP 16; O2SAT 95
== END 2023-12-15 14:25 | disposition home or self-care (01) ==
PROVIDERS: Emergency Provider Emergency Medicine; Visit Provider Emergency Medicine
DX: S63.92XA Sprain of unspecified part of left wrist and hand, initial encounter (principal); F17.210 Nicotine dependence, cigarettes, uncomplicated; W00.9XXA Unspecified fall due to ice and snow, initial encounter
CPT/HCPCS: 73110; 99283

== ENCOUNTER 2024-05-18 10:39 | Emergency (ER) | payer MEDICAID, SELFPAY ==
[2024-05-18 10:39] VITALS: BP 129/97; PULSE 89; RESP 20; TEMP 35.7; O2SAT 99; BMI 21.9
--- NOTE | 2024-05-18 11:26 | EX.ED.VIS.UR ---
HPI HPI - URI History of Present Illness Chief Complaint: Cough Informant: patient Onset/Context/Timing Onset: Days (5) Context: Gradual Onset Timing: Continuous Quality: Dry cough Location: Chest Worsened by: - (Nothing) Relieved by: - (Nothing) Associated Symptoms Associated Symptoms: Positive for Headache, Shortness of Breath, Chest Pain and Nonproductive cough; Negative for Nasal Congestion, Sinus Pressure, Myalgias, Nausea, Vomiting, Diarrhea, Hemoptysis or Productive Cough Narrative Narrative: Patient presents with cough that has been constant for the past 5 days. Patient states he is unable to produce any sputum. Patient states he has been constant. Patient states it is gradually getting worse. Patient admits to some pain in his chest with coughing. Patient states he feels like sometimes he cannot catch his breath. Patient also admits to generalized headache. Patient denies any fevers or chills. Patient states nothing makes his cough better and nothing makes it worse. ROS ROS ED Constitutional Constitutional ED: Denies chills or fever(s) Eyes Eyes: Denies blurry vision or change in vision ENT ENT ED: Denies rhinorrhea or sore throat Cardiovascular Cardiovascular: Reports chest pain; Denies palpitations Respiratory/Chest Respiratory/Chest: Reports cough and dyspnea Gastrointestinal Gastrointestinal: Denies nausea or vomiting Genitourinary Genitourinary ED: Denies dysuria or hematuria Musculoskeletal Musculoskeletal: Reports neck pain; Denies back pain Integumentary Denies abscess or rash Neurologic Neurologic: Reports headache(s); Denies weakness Allergic/Immunologic Allergic/Immunologic ED: Denies mouth swelling or urticaria [facility] Medical History Dialysis patient Allergic fungal sinusitis (AFS) Hypertension Seizures Colon cancer Stomach cancer Home Medications ?Medication ?Instructions ?Recorded ?Last Taken ?Type albuterol sulfate 90 mcg/actuation 1 - 2 puff inhalation Q4H PRN PRN 04/07/23 Unknown Rx aerosol inhaler (Ventolin HFA) Wheezing ##1 budesonide-formoterol HFA 160 2 puff inhalation BID #10.2 grams 04/07/23 Unknown Rx mcg-4.5 mcg/actuation aerosol inhaler lamotrigine 100 mg tablet 100 mg PO BID 05/18/24 Unknown History lamotrigine 50 mg disintegrating 50 mg PO BID 05/18/24 Unknown History tablet propranolol 10 mg tablet 10 mg PO BID PRN PRN anxiety 05/18/24 Unknown History Allergy/AdvReac Type Severity Reaction Status Date / Time iodine Allergy Anaphylaxis Verified 05/18/24 10:40 Surgical History S/P colon resection Social History Smoking Status: Current every day smoker tobacco type: cigarettes and cigars EXAM Physical Exam Const Vital Signs: 05/18/24 10:39 05/18/24 10:56 05/18/24 12:27 Temperature 96.3 F L Temperature Source Temporal Pulse Rate 89 70 Respiratory Rate 20 H 18 Respiratory Effort Normal Non-Labored Respiratory Depth Normal Respiratory Pattern Tachypnea Normal Blood Pressure 129/97 H Blood Pressure Mean 107 Pulse Ox 99 Oxygen Delivery Method Room Air Room Air 05/18/24 12:27 Temperature Temperature Source Pulse Rate Respiratory Rate Respiratory Effort Respiratory Depth Respiratory Pattern Blood Pressure Blood Pressure Mean Pulse Ox 99 Oxygen Delivery Method Room Air Positive well nourished and well developed General Appearance ED: well developed and NAD HEENT Reports moist mucous membranes normocephalic and atraumatic Neck supple and no JVD Resp normal respiratory effort and clear to auscultation bilaterally Cardio Rate: regular rate Rhythm: regular rhythm GI non-tender and non-distended Extremity normal to inspection and full ROM Neuro oriented x3, CN's II-XII intact bilaterally and no sensory deficits noted Sensorium / Orientation: alert Motor Exam: strength 5/5 throughout MDM MDM MDM Narrative Medical decision making narrative: Differential diagnosis includes pneumonia, bronchitis, viral upper respiratory infection, and seasonal allergies. Chest x-ray will be obtained to assess for pneumonia and pneumothorax. CBC will be obtained to assess for leukocytosis and anemia. Basic metabolic profile will be obtained to assess for electrolyte abnormality and renal function. COVID-19, influenza, and RSV PCR will be obtained to assess for viral illness. Treatment and Re-Evaluation Narrative: Smoking cessation was discussed. Patient was given a DuoNeb aerosol. Patient refused viral swabs. Patient did not want to be evaluated any further emergency department. Patient left prior to completing treatment. Discharge Plan Triage Chief Complaint: Cough ED Provider: Dago Kim Dx/Rx/DC Orders Clinical Impression: Cough Prescriptions: No Action albuterol sulfate [Ventolin HFA] 90 mcg/actuation HFA aerosol inhaler 1 - 2 puff inhalation Q4H PRN PRN (Reason: Wheezing) Qty: 1 0RF budesonide-formoterol 160-4.5 mcg/actuation HFA aerosol inhaler 2 puff inhalation BID Qty: 10.2 0RF propranolol 10 mg tablet 10 mg PO BID PRN PRN (Reason: anxiety) lamotrigine 100 mg tablet 100 mg PO BID lamotrigine 50 mg tablet,disintegrating 50 mg PO BID Primary Care [facility] Belinda Willard [facility] - Print Language: Syriac Disposition Disposition: Elopement Discharge Date/Time: 05/18/24 12:37
[2024-05-18] MEDS: Ipratropium/Albuterol Sulfate 3 ML AMPUL.NEB INHALATION (12:26)
[2024-05-18 12:27] VITALS: PULSE 70; RESP 18; O2SAT 99
--- NOTE | 2024-05-18 12:35 | ED.RN ---
PT REFUSING COVID/FLU/RSV, I CAN GET THAT AT THE [facility]. PT REFUSED BLOOD WORK. PT THEN PROCEEDS TO COUGH INTENTIONALLY ON THE NURSE.
== END 2024-05-18 12:37 | disposition left against medical advice (07) ==
PROVIDERS: Emergency Provider Emergency Medicine; Visit Provider Emergency Medicine
DX: R05.9 Cough, unspecified (principal); F17.290 Nicotine dependence, other tobacco product, uncomplicated; F17.210 Nicotine dependence, cigarettes, uncomplicated
CPT/HCPCS: 94640; 99282